=== PATIENT | female | born 1985 | race Hispanic/Latino ===

== ENCOUNTER 2017-07-18 15:38 | Emergency (ER) | payer OTHER ==
[2017-07-18 15:51] VITALS: BP 139/73; PULSE 82; RESP 18; TEMP 99.3; O2SAT 98
[2017-07-18] MEDS ORDERED: Tdap Vaccine 0.5 ml Vial (10-64 yrs) IM ONE (16:01)
[2017-07-18] MEDS ORDERED: Povidone Iodine Oint 10% Foilpak UD ONE (16:05)
[2017-07-18] MEDS ORDERED: Lidocaine 1% Inj (20ml) SC ONE (16:06)
[2017-07-18] MEDS ORDERED: Lidocaine 1% Inj (20ml) ONE (16:06)
--- NOTE | 2017-07-18 16:14 | ED PDOC ---
HPI: Wound Care - HPI Time Seen by Provider: 07/18/17 16:00 Chief Complaint (Nursing): Abnormal Skin Integrity Chief Complaint (Provider): Right Hand Laceration History Of Present Illness: 31 year old female presents to the emergency department with a laceration to her right hand. The patient states that she grazed her hand across a cigarette paper tester causing injury. Denies difficulty with function. Exam Limitations: no limitations Onset/Duration Of Symptoms: Mins Current Symptoms Are (Timing): Still Present Location Of Injury: Right: Hand (1.25 laceration on dorsum of right hand) Severity: None Past Medical History Reviewed: Historical Data, Nursing Documentation, Vital Signs Vital Signs: Last Vital Signs Temp 99.3 F 07/18/17 15:48 Pulse 82 07/18/17 15:48 Resp 18 07/18/17 15:48 BP 139/73 07/18/17 15:48 Pulse Ox 98 07/18/17 15:48 - Medical History PMH: No Chronic Diseases - Surgical History Surgical History: No Surg Hx - Family History Family History: States: Unknown Family Hx - Social History Current smoker - smoking cessation education provided: No Ex-Smoker (has not smoked in the last 12 months): No Alcohol: None Drugs: Denies - Immunization History Hx Tetanus Toxoid Vaccination: (cannot remember last one) - Allergies Allergies/Adverse Reactions: Allergies Allergy/AdvReac Type Severity Reaction Status Date / Time codeine Allergy VOMITING Verified 07/18/17 15:48 Review of Systems ROS Statement: Except As Marked, All Systems Reviewed And Found Negative Musculoskeletal: Positive for: Hand Pain (laceration to right hand) Neurological: Negative for: Numbness Physical Exam - Reviewed Nursing Documentation Reviewed: Yes Vital Signs Reviewed: Yes - Physical Exam Appears: Positive for: Non-toxic, No Acute Distress Rectal: Positive for: Stool Is Heme: (good function of finger at left MCP, PIP and DIP.) Extremity: Positive for: Other (1.25cm lac on dorsum of right hand by third MCP. ). Negative for: Tenderness, Swelling Neurologic/Psych: Positive for: Alert, Oriented - ECG O2 Sat by Pulse Oximetry: 98 (RA) Pulse Ox Interpretation: Normal Procedure: Wound Repair - Time Performed Time Performed: 16:10 - Time Out Time Out: Side verified, Site verified, Patient ID confirmed, Sterile procedures obs. - Consent Obtained Consent obtained: Verbal - [facility]Kalie [facility] PA-C[facility] - Indications Indication(s):: Laceration - Location Location:: Right, Hand - Anesthetic Technique Local/Regional Anesthetic:: Lidocaine 1% - Debris Debris:: None - Complexity Complexity:: Simple (one layer) - Wound repair method Sutures:: # (3), Size (4:0), Technique (interrupted) Medical Decision Making Medical Decision Makin Initial Impression 31 year old female presenting with laceration to right hand Initial Impression * Lidocaine 1% (20mL) SC * Tetanus 0.5mL IM * Reevaluation Documented by Ludmila Julio acting as a scribe for Ludmila Julio PA-C. All medical record entries made by the Scribe were at my direction and personally dictated by me. I have reviewed the chart and agree that the record accurately reflects my personal performance of the history, physical exam, medical decision making, and the department course for this patient. I have also personally directed, reviewed, and agree with the discharge instructions and disposition. Disposition - Clinical Impression Clinical Impression: Hand laceration - Patient ED Disposition Is Patient to be Admitted: No Counseled Patient/Family Regarding: Studies Performed - Disposition Disposition: Routine/Home Disposition Time: 16:30 Condition: STABLE Additional Instructions: f/u with ED/ urgent care/ pmd in 7 to 10 days for removal of sutures Instructions: Laceration Repair With Stitches (DC) Forms: [employer] (Norwegian), [facility] ED School/Work Excuse - POA Present On Arrival: None
== END 2017-07-18 16:57 | disposition home or self-care (01) ==
LOC: H.ER 15:38
DX: S61.411A Laceration without foreign body of right hand, initial encounter (principal); W26.8XXA Contact with other sharp object(s), not elsewhere classified, initial encounter; Y92.89 Other specified places as the place of occurrence of the external cause

== ENCOUNTER 2017-07-27 16:04 | Emergency (ER) | payer OTHER ==
[2017-07-27 16:47] VITALS: BP 124/71; PULSE 72; RESP 16; TEMP 98.6; O2SAT 100
--- NOTE | 2017-07-27 18:06 | ED PDOC ---
HPI: Wound Care - HPI Time Seen by Provider: 07/27/17 16:50 Chief Complaint (Nursing): Suture/Staple Removal Chief Complaint (Provider): Suture removal History Per: Patient History Of Present Illness: 31yo female, right hand dominant, presents to ED for removal of sutures on the dorsum of her right hand. 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 Her last tetanus vaccination was on . She denies any new trauma or injuries to the site. LMP: 07/18/17 Current Symptoms Are (Timing): Better Past Medical History Reviewed: Historical Data, Nursing Documentation, Vital Signs Vital Signs: Last Vital Signs Temp 98.6 F 07/27/17 16:45 Pulse 72 07/27/17 16:45 Resp 16 07/27/17 16:45 BP 124/71 07/27/17 16:45 Pulse Ox 100 07/27/17 16:45 - Medical History PMH: No Chronic Diseases - Surgical History Other surgeries: wisdom teeth removal - Family History Family History: States: Unknown Family Hx - Immunization History Hx Tetanus Toxoid Vaccination: (cannot remember last one) - Allergies Allergies/Adverse Reactions: Allergies Allergy/AdvReac Type Severity Reaction Status Date / Time codeine Allergy VOMITING Verified 07/18/17 15:48 Review of Systems ROS Statement: Except As Marked, All Systems Reviewed And Found Negative Constitutional: Negative for: Fever, Chills Skin: Positive for: Other (sutures to dorsum of right hand) Physical Exam - Reviewed Nursing Documentation Reviewed: Yes Vital Signs Reviewed: Yes - Physical Exam Comments: GENERAL APPEARANCE: Patient is awake, alert, oriented x 3, in no acute distress. CHEST AND RESPIRATORY: (-) rash, (-) chest wall tenderness. Lungs: (-) rales , (-) rhonchi, (-) wheezes, (-) rub; breath sounds equal bilaterally. HEART AND CARDIOVASCULAR: (-) irregularity; (-) murmur, (-) gallop, (-) rub. SKIN: Warm, dry; (-) cyanosis. HAND: Healing laceration with 3 sutures to dorsum of right 3rd MCP. (-) drainage, erythema, effusion, tenderness (-) cellulitis. (+) FROM of all digits on right hand. (-) distal neurovascular deficits. - ECG O2 Sat by Pulse Oximetry: 100 (RA) Pulse Ox Interpretation: Normal Medical Decision Making Medical Decision Making: Impression: Suture removal Plan: -- Sutures removed by PA, patient tolerated procedure well. Advised to keep area covered and dry, to clean with soap and warm water. Patient is stable for discharge home. Advised to follow up with primary care physician in 1-2 days without fail. Return to the emergency room at any time for any new or worsening symptoms. Patient states he/she fully agrees with and understands discharge instructions. States that he/she agrees with the plan and disposition. Verbalized and repeated discharge instructions and plan. I have given the patient opportunity to ask any additional questions. Scribe Attestation: Documented by Ary Cornejo acting as a scribe for DES Baker Provider Attestation: All medical record entries made by the Scribe were at my direction and personally dictated by me. I have reviewed the chart and agree that the record accurately reflects my personal performance of the history, physical exam, medical decision making, and the department course for this patient. I have also personally directed, reviewed, and agree with the discharge instructions and disposition. Disposition - Clinical Impression Clinical Impression: Visit for suture removal, Hand laceration - Disposition Disposition: Routine/Home Disposition Time: 18:13 Condition: STABLE Additional Instructions: CONTINUE WOUND CARE AT HOME. KEEP WOUND CLEAN AND TRY. RETURN IMMEDIATELY WITH ANY SIGNS OF INFECTION. Instructions: Stitches Removal Forms: [employer] ([place]i) Print Language: GEORGI[place]
== END 2017-07-27 18:28 | disposition home or self-care (01) ==
LOC: H.ER 16:04
DX: Z48.02 Encounter for removal of sutures (principal)